=== PATIENT | male | born 1980 | race Two or more races ===

== ENCOUNTER 2023-09-06 23:42 | Emergency (ER) | payer MEDICAID, OTHER ==
[~2023-09-06] VITALS: Ht 177.8 cm; Wt 141.7 kg
[2023-09-07] MEDS ORDERED: ASPirin 325 MG TAB PO ONE (00:15)
[2023-09-07 00:16] LABS: Basophils # (auto) 0.1 10 ^3/uL (0-0.2); Eosinophils # (auto) 0.2 10 ^3/uL (0-0.8); Eosinophils % (auto) 2.1 % (0.0-7.0); Hematocrit 47.8 % (41.0-53.0); Hemoglobin 15.8 g/dL (13.5-17.5); Lymphocytes # (auto) 3.1 10 ^3/uL (0.4-5.4); Mean Corpuscular Hemoglobin 27.7 pg (28.0-32.0); Mean Corpuscular Hgb Conc. 33.1 g/dL (32.0-36.0); Mean Corpuscular Volume 83.8 fL (80.0-100.0); Monocytes # (auto) 1.1 10 ^3/uL (0-1.3); Neutrophils # (auto) 4.7 10 ^3/uL (1.6-8.6); Neutrophils % (auto) 50.9 % (37.0-80.0); Red Cell Distribution Width 13.8 % (11.8-14.3); White Blood Cell 9.3 10^3/uL (4.4-10.8)
[2023-09-07 00:29] LABS: Alanine Aminotransferase 30 U/L (7-40); Albumin 4.5 g/dL (3.2-4.8); Alkaline Phosphatase 95 U/L (46-116); Anion Gap 4 (5-15); Aspartate Aminotransferase 21 U/L (13-40); BUN/Creatinine Ratio 9.3 (10.0-20.0); Blood Urea Nitrogen 8 mg/dL (9-23); Calcium 9.3 mg/dL (8.7-10.4); Carbon Dioxide 30 mmol/L (20-30); Chloride 105 mmol/L (98-107); Glucose 96 mg/dL (74-106); Potassium 4.1 mmol/L (3.5-5.1); Sodium 139 mmol/L (136-145)
[2023-09-07 00:30] LABS: Bilirubin, Total 0.5 mg/dL (0.2-1.0); Total Protein 7.3 g/dL (5.7-8.2)
[2023-09-07 00:32] LABS: INR 0.96 (0.9-1.15); Prothrombin Time 10.1 sec (9.3-11.8)
[2023-09-07] MEDS ORDERED: PRED10TA PO (01:26)
[2023-09-07 01:50] VITALS: BP 107/75; TEMP 98.2
[2023-09-07 01:52] VITALS: PULSE 61; RESP 16; O2SAT 94
== END 2023-09-07 01:26 | disposition home or self-care (01) ==
LOC: ER 23:42
DX: M54.10 Radiculopathy, site unspecified (principal); R07.89 Other chest pain; Z79.899 Other long term (current) drug therapy
CPT/HCPCS: 36415; 71045; 80053; 84484; 85025; 85610; 85730; 93005

== ENCOUNTER 2023-09-21 15:40 | Emergency (ER) | payer MEDICAID ==
[~2023-09-21] VITALS: Ht 177.8 cm; Wt 141.7 kg
[~2023-09-21 15:40] MED LIST: PRED10TA PO
[2023-09-21] MEDS: ALBUTEROL SULF 2.5 MG/0.5ML(0.5%) NEB SOLN NEB ONE (16:21)
[2023-09-21] MEDS: IPRATROPIUM BROM 0.5 MG/2.5ML INH SOL NEB ONE (16:21)
[2023-09-21 16:36] LABS: Basophils # (auto) 0.1 10 ^3/uL (0-0.2); Basophils % (auto) 0.6 % (0.0-2.0); Eosinophils # (auto) 0.1 10 ^3/uL (0-0.8); Eosinophils % (auto) 0.8 % (0.0-7.0); Hematocrit 47.3 % (41.0-53.0); Hemoglobin 15.4 g/dL (13.5-17.5); Lymphocytes # (auto) 3.1 10 ^3/uL (0.4-5.4); Lymphocytes % (auto) 22.5 % (10.0-50.0); Mean Corpuscular Hemoglobin 27.1 pg (28.0-32.0); Mean Corpuscular Hgb Conc. 32.6 g/dL (32.0-36.0); Mean Corpuscular Volume 83.3 fL (80.0-100.0); Monocytes # (auto) 1.2 10 ^3/uL (0-1.3); Monocytes % (auto) 8.5 % (0.0-12.0); Neutrophils # (auto) 9.4 10 ^3/uL (1.6-8.6); Neutrophils % (auto) 67.6 % (37.0-80.0); Red Blood Cells 5.68 10^6/uL (4.5-5.90); Red Cell Distribution Width 13.8 % (11.8-14.3); White Blood Cell 13.9 10^3/uL (4.4-10.8)
[2023-09-21 16:54] LABS: Alanine Aminotransferase 32 U/L (7-40); Albumin 4.6 g/dL (3.2-4.8); Alkaline Phosphatase 89 U/L (46-116); Anion Gap 7 (5-15); Aspartate Aminotransferase 35 U/L (13-40); BUN/Creatinine Ratio 11.9 (10.0-20.0); Bilirubin, Total 0.6 mg/dL (0.2-1.0); Blood Urea Nitrogen 12 mg/dL (9-23); Calcium 9.3 mg/dL (8.7-10.4); Carbon Dioxide 25 mmol/L (20-30); Chloride 108 mmol/L (98-107); Glucose 88 mg/dL (74-106); Potassium 4.1 mmol/L (3.5-5.1); Sodium 140 mmol/L (136-145); Total Protein 7.1 g/dL (5.7-8.2)
[2023-09-21] MEDS: DexAMETHasone SOD PHOS 10MG/1ML VIAL INJ IM ONE (17:10)
[2023-09-21] MEDS ORDERED: ALBU108A5 IN (17:31)
[2023-09-21] MEDS ORDERED: BENZ200C64 PO (17:31)
[2023-09-21] MEDS ORDERED: PRED20TA2 PO (17:31)
[2023-09-21] MEDS ORDERED: AZITTAB PO (17:31)
[2023-09-21 17:46] VITALS: BP 126/78; PULSE 109; RESP 16; TEMP 98.6; O2SAT 96
== END 2023-09-21 17:47 | disposition home or self-care (01) ==
LOC: ER 15:40
DX: R07.89 Other chest pain (principal); J20.9 Acute bronchitis, unspecified
CPT/HCPCS: 36415; 71046; 80053; 84484; 85025; 93005; 94640; 96372; 99285; J1100; J7644

== ENCOUNTER 2023-10-18 11:35 | Emergency (ER) | payer SELFPAY ==
[~2023-10-18] VITALS: Ht 177.8 cm; Wt 137.1 kg
[~2023-10-18 11:35] MED LIST changes: +ALBU108A5 IN; +AZITTAB PO; +BENZ200C64 PO; +PRED20TA2 PO
[2023-10-18 13:34] VITALS: BP 149/71; PULSE 79; RESP 14; TEMP 98.7; O2SAT 97
[2023-10-18] MEDS: HYDROcodone-ACET 5/325MG TAB PO ONE (13:43)
[2023-10-18] MEDS ORDERED: METH-1182 PO (14:11)
[2023-10-18] MEDS ORDERED: IBUP-1456 PO (14:11)
== END 2023-10-18 14:23 | disposition home or self-care (01) ==
LOC: ER 11:35
DX: S16.1XXA Strain of muscle, fascia and tendon at neck level, initial encounter (principal); S39.012A Strain of muscle, fascia and tendon of lower back, initial encounter; S63.591A Other specified sprain of right wrist, initial encounter; F41.9 Anxiety disorder, unspecified; Z79.899 Other long term (current) drug therapy; V43.52XA Car driver injured in collision with other type car in traffic accident, initial encounter; Y93.I9 Activity, other involving external motion; Y92.89 Other specified places as the place of occurrence of the external cause; Y99.8 Other external cause status
CPT/HCPCS: 72040; 72100; 73110